=== PATIENT | female | born 1935 | race Caucasian/White ===

== ENCOUNTER → 2016-10-20 | Outpatient (CLI) | payer OTHER, MEDICARE ==
[~2016-10-20] MED LIST: ASPCH81X PO; ASPI81TA28 PO; CPR500 PO; FERR1TAB13 PO; GLC/500 PO; HYDR-3419 PO; IBUP-1050 PO; LEVO100T7 PO; LISI-461 PO; METF1TAB53 PO; METH2.5T PO; SYN100 PO
[2016-10-20 13:05] LABS: CALCIUM 8.5 mg/dl (8.5-10.1)
[2016-10-20 13:06] LABS: HEMATOCRIT 30.9 % (37-47); MEAN CELL VOLUME 78.2 fL (80-100); MEAN CORPUSCULAR HEMOGLOBIN 22.5 pg (25-34); MEAN CORPUSCULAR HGB CONC 28.8 g/dl (32-36); MEAN PLATELET VOLUME 9.7 fL (7.4-10.4); PLATELET COUNT 337 K/uL (130-400); RED BLOOD COUNT 3.95 M/uL (4.2-5.4); WHITE BLOOD COUNT 9.44 K/uL (4.8-10.8)
[2016-10-20 13:08] LABS: ALT/SGPT 26 U/L (12-78); BLOOD UREA NITROGEN 10 mg/dl (7-18); BUN/CREATININE RATIO 15.1 (10-20); CARBON DIOXIDE 28 mmol/L (21-32); CHLORIDE 106 mmol/L (98-107); CHOLESTEROL 163 mg/dl (0-200); CHOLESTEROL/HDL RATIO 3.7; CREATININE 0.67 mg/dl (0.60-1.20); GLUCOSE 144 mg/dl (70-99); HDL CHOLESTEROL 44 mg/dl; POTASSIUM 3.8 mmol/L (3.5-5.1); SODIUM 142 mmol/L (136-145); TRIGLYCERIDES 79 mg/dl (0-150); VERY LOW DENSITY LIPOPROT CALC 16 mg/dl
[2016-10-20 13:09] LABS: ANISOCYTOSIS PRESENT; BASO % 0.4 %; BASO ABS # 0.04 K/uL (0-0.2); COMPLETE YES; EOS % 2.5 %; IG% 0.5 %; LYMPH % 15.1 %; LYMPH ABS # 1.43 K/uL (1.2-3.4); MICROCYTOSIS PRESENT; NEUT % 72.5 %
[2016-10-20 13:13] LABS: ALB/GLOB RATIO 0.9 (0.9-2); ALKALINE PHOSPHATASE 89 U/L (45-117); AST/SGOT 24 U/L (15-37)
[2016-10-20 13:15] LABS: ESTIMATED AVERAGE GLUCOSE 163 mg/dl; HA1C FLAG Normal (Normal)
[2016-10-20 13:33] LABS: RATIO 53.8 mcg/mg (0-30.0)
== END | disposition home or self-care (01) ==
LOC: C.LABSPEC 12:11
PROVIDERS: ATTEND Internal Medicine
DX: E11.65 Type 2 diabetes mellitus with hyperglycemia (principal); E78.5 Hyperlipidemia, unspecified; I10 Essential (primary) hypertension; G70.00 Myasthenia gravis without (acute) exacerbation; E03.9 Hypothyroidism, unspecified

== ENCOUNTER → 2016-10-27 | Outpatient (CLI) | payer OTHER, MEDICARE ==
[~2016-10-27] MED LIST changes: +ATROPINE SULFATE 0.1 MG/ML 5ML SYR ONE
--- NOTE | 2016-10-27 17:11 | DOBUTAMINE ECHO ---
*NOTICE TO RECEIVING [employer] [employer] [facility] This information is strictly Confidential and protected under [place] law. [place] law prohibits you from making any further disclosure of this information unless further disclosure is expressly permitted by the written consent of the person to whom it pertains or is authorized by law. A general authorization for the release of medical or other information is not sufficient for this purpose. Hospital accepts no responsibility if the information is made available to any other person, INCLUDING THE PATIENT. Interpretation Summary * Name: RAMIN ORTIZ Study Date: 10/27/2016 11:55 AM BP: 152/82 mmHg * Patient Location: [facility] HR: 68 * : 1935 (M/d/yyyy) Gender: Female Height: 66 in * Age: 81 yrs Ethnicity: CA Weight: 219 lb * Ordering Physician: Tristan Horvath MD * Performed By: Radha Reich RDCS * * Reason For Study: Exertional dyspnea, abnormal EKG * BSA: 2.1 m2 * -- Conclusions -- * Negative dobutamine stress echocardiogram for myocardial ischemia at >100% maximum predicted heart rate. * No chest pain. * No ECG changes. * Baseline echocardiogram notes normal left ventricular systolic function and mild left ventricular hypertrophy. Procedure Details * DOBUTAMINE ECHO, CPT#[id number] * ECHO DOPPLER, CPT #[id number] * ECHO COLOR FLOW, CPT #[id number] * A contrast injection of Definity was performed to improve assessment of LV function. * Contrast was injected into an intravenous site in the left arm. * One vial of Definity ultrasound contrast was diluted in normal saline to a total volume of 10 ml. A total of '6' ml of solution was administered during imaging. * Lot # [id number] of Definity utilized for procedure. * Expiration date DEC 14. * The attending nurse who injected the contrast agent was Toshia Espino RN. Left Ventricle * The left ventricle is normal in size. * There is mild concentric left ventricular hypertrophy. * Ejection Fraction = 55-60%. * Left ventricular systolic function is normal. * Resting wall motion: Normal. Stress wall motion: Appropriate increase in Left ventricular systolic function and decrease in cavity size. No stress induced segmental wall motion abnormalities. Right Ventricle * The right ventricle is not well visualized. * The right ventricular systolic function is normal as assessed by tricuspid annular plane systolic excursion (TAPSE) (normal >1.5 cm). Atria * The left atrial size is normal. * Right atrium not well visualized. * There is no evidence of atrial septal defect, but resolution does not allow assessment for a patent foramen ovale. Mitral Valve * The mitral valve is grossly normal. * There is no mitral valve stenosis. * Significant mitral regurgitation is absent. Tricuspid Valve * The tricuspid valve is not well visualized. * There is no tricuspid stenosis. * Significant tricuspid regurgitation is absent. Aortic Valve * The aortic valve is trileaflet. * The aortic valve opens well. * Aortic valve sclerosis mild, without significant aortic valvular stenosis. * No hemodynamically significant valvular aortic stenosis. * There is no significant aortic regurgitation. Pulmonic Valve * The pulmonary valve is not well seen, but the Doppler examination is normal without significant regurgitation or stenosis. Great Vessels * The aortic root is normal size. * The pulmonary is not well visualized. Pericardium * There is no pericardial effusion. Stress Parameters * Normal baseline electrocardiogram. * Stress ECG: No ST changes. No arrhythmias. * The stress portion of this study was personally supervised by the undersigned interpreting physician. * Rest heart rate was '68' BPM. * Rest blood pressure was '152/82' * Maximum heart rate achieved was 151 bpm. * Maximum heart rate was 107 % of maximum age-predicted heart rate. * Maximum blood pressure was '164/81' * Maximum Dobutamine infusion rate was '10' mcg/kg/min. * A total of 0.25 mg of intravenous Atropine was used to supplement Dobutamine for heart rate response. * Dobutamine infusion was terminated due to achieving target heart rate * A total of 5 mg of IV Metoprolol was administered to reverse Dobutamine-induced tachycardia. * The patient did not exhibit any symptoms during drug infusion. Left Ventricular Diastolic Function * Grade I diastolic dysfunction, (abnormal relaxation pattern). MMode 2D Measurements and Calculations IVSd 1.2 cm LVIDd 3.8 cm LVIDs 2.6 cm LVPWd 1.3 cm IVS/LVPW 0.90 FS 30.4 % EDV(Teich) 62.3 ml ESV(Teich) 25.8 ml EF(Teich) 58.6 % EDV(cubed) 55.2 ml ESV(cubed) 18.6 ml EF(cubed) 66.3 % LV mass(C)d 167.1 grams LV mass(C)dI 80.4 grams/m\S\2 SV(Teich) 36.5 ml SI(Teich) 17.6 ml/m\S\2 SV(cubed) 36.6 ml SI(cubed) 17.6 ml/m\S\2 Ao root diam 3.5 cm Ao root area 9.4 cm\S\2 ACS 2.1 cm LA dimension 2.2 cm asc Aorta Diam 3.9 cm LA/Ao 0.65 LVOT diam 2.0 cm LVOT area 3.2 cm\S\2 LVAd ap4 31.6 cm\S\2 LVLd ap4 8.2 cm EDV(MOD-sp4) 99.7 ml EDV(sp4-el) 103.3 ml LVAs ap4 19.2 cm\S\2 LVLs ap4 7.2 cm ESV(MOD-sp4) 42.0 ml ESV(sp4-el) 43.7 ml EF(MOD-sp4) 57.8 % EF(sp4-el) 57.7 % LVAd ap2 26.1 cm\S\2 LVLd ap2 8.0 cm EDV(MOD-sp2) 69.0 ml EDV(sp2-el) 71.8 ml LVAs ap2 14.4 cm\S\2 LVLs ap2 6.3 cm ESV(MOD-sp2) 27.5 ml ESV(sp2-el) 27.7 ml EF(MOD-sp2) 60.1 % EF(sp2-el) 61.5 % LVLd %diff -2.12 % EDV(MOD-bp) 84.0 ml LVLs %diff -12.70 % ESV(MOD-bp) 36.0 ml EF(MOD-bp) 57.1 % SV(MOD-sp4) 57.6 ml SI(MOD-sp4) 27.7 ml/m\S\2 SV(MOD-sp2) 41.5 ml SI(MOD-sp2) 19.9 ml/m\S\2 SV(MOD-bp) 48.0 ml SI(MOD-bp) 23.1 ml/m\S\2 SV(sp4-el) 59.6 ml SI(sp4-el) 28.7 ml/m\S\2 SV(sp2-el) 44.1 ml SI(sp2-el) 21.2 ml/m\S\2 Doppler Measurements and Calculations MV E max mehnaz 99.7 cm/sec MV A max mehnaz 114.0 cm/sec MV E/A 0.87 MV dec time 0.26 sec Ao V2 max 147.2 cm/sec Ao max PG 8.7 mmHg Ao max PG (full) 4.7 mmHg CHARLES(V,A) 2.2 cm\S\2 CHARLES(V,D) 2.2 cm\S\2 LV V1 max PG 4.0 mmHg LV V1 max 99.7 cm/sec PA V2 max 93.7 cm/sec PA max PG 3.5 mmHg PA acc slope 598.1 cm/sec\S\2 PA acc time 0.11 sec TR max mehnaz 149.7 cm/sec PA pr(Accel) 31.5 mmHg
== END | disposition home or self-care (01) ==
LOC: C.CPL 11:00
PROVIDERS: ATTEND Internal Medicine
DX: R06.09 Other forms of dyspnea (principal); R94.31 Abnormal electrocardiogram [ECG] [EKG]

== ENCOUNTER → 2016-11-08 | Outpatient (CLI) | payer OTHER, MEDICARE ==
[~2016-11-08] MED LIST changes: -ATROPINE SULFATE 0.1 MG/ML 5ML SYR ONE
== END | disposition home or self-care (01) ==
LOC: C.LABSPEC 17:47
PROVIDERS: ATTEND Internal Medicine
DX: Z12.11 Encounter for screening for malignant neoplasm of colon (principal)

== ENCOUNTER → 2016-11-22 | Day surgery (SDC) | payer OTHER, MEDICARE ==
[2016-11-12 09:18] VITALS: Ht 168.9 cm; Wt 99.5 kg
[~2016-11-22] VITALS: Ht 168.9 cm; Wt 99.5 kg
[~2016-11-22] MED LIST changes: -ASPI81TA28 PO; +ATROPINE SULFATE 0.1 MG/ML 5ML SYR IV PRN; -CPR500 PO; +EpHEDrine SULFATE INJ 50 MG/ML AMP IV PRN; -GLC/500 PO; -HYDR-3419 PO; +LIDOCAINE HCL 2% 2 ML VIAL (20MG/ML) ONE; +PROPOFOL IV EMULSION 10 MG/ML 20 ML VIAL IV ONE; -SYN100 PO
--- NOTE | 2016-11-22 14:06 | Endo History and Physical ---
History & Physical Date of Service: Nov 22, 2016. Chief Complaint: ANEMIA Referring Physician: DR. CARMEN MEIER History of Present Illness For colonoscopy Past Surgical History Hx Cardiac Surgery: Yes (HEART ANEURYSM REPAIR ([facility])) Hx Internal Defibrillator: No Hx Pacemaker: No Hx Abdominal Surgery: Yes (INCISIONAL HERNIA, [facility]MANUEL) Hx of Implantable Prosthesis: No Hx Post-Op Nausea and Vomiting: No Hx Cancer Surgery: No Hx Thoracic Surgery: No Hx Orthopedic: Yes (RT/LEFT KNEE ARTHROSCOPY, LEFT RCR, RT/LEFT CTR) Hx Urinary Tract Surgery: Yes (KIDNEY ANUERYSM REPAIR ([place])) Family History None Social History Smoking Status: Former Smoker Hx Substance Use: No Hx Alcohol Use: No Allergies Coded Allergies: No Known Allergies (Unverified , NONE, 11/22/16) Current Medications Reported Home Medications Medications Dose Route/Sig Max Daily Dose Days Date Category Aspirin Chewable (Aspirin) 81 Mg Chew 81 Mg PO QAM 11/12/16 Reported Methotrexate 2.5 Mg Tab 4 Tab PO WK 11/12/16 Reported Glucophage Ext Rel (Metformin Hcl) 1,000 Mg Tab 1,000 Mg PO BID 11/12/16 Reported Zestril (Lisinopril) 10 Mg Tab 10 Mg PO QAM 11/12/16 Reported Levothyroxine Sodium 100 Mcg Tab 1 Tab PO QAM 90 11/12/16 Reported Vital Signs Weight (Kilograms): 99.55 Height (Feet): 5 Height (Inches): 6.5 Date Time Temp Pulse Resp B/P (MAP) Pulse Ox O2 Delivery O2 Flow Rate FiO2 11/22/16 13:52 36.8 81 20 173/75 (107) 96 Room Air Physical Exam General Appearance: + obese Respiratory/Chest: Respiratory effort: no dyspnea Cardiovascular: Heart Auscultation: RRR Abdomen: Inspection & Palpation: soft Assessment and Plan Anemia for colonoscopy
--- NOTE | 2016-11-22 14:39 | Discharge Instructions ---
Endoscopy Patient Instructions Date / Procedure(s) Performed Nov 22, 2016. Colonoscopy Allergy Information Coded Allergies: No Known Allergies (Unverified , NONE, 11/22/16) Discharge Date / Findings Nov 22, 2016. Diverticulosis Medication Instructions Stopped Medication(s): INSTRUCTED TO STOP METFORMIN 3 DAYS AGO. Restart Stopped Medication(s): resume meds Reported Home Medications Medications Dose Route/Sig Max Daily Dose Days Date Category Aspirin Chewable (Aspirin) 81 Mg Chew 81 Mg PO QAM 11/12/16 Reported Methotrexate 2.5 Mg Tab 4 Tab PO WK 11/12/16 Reported Glucophage Ext Rel (Metformin Hcl) 1,000 Mg Tab 1,000 Mg PO BID 11/12/16 Reported Zestril (Lisinopril) 10 Mg Tab 10 Mg PO QAM 11/12/16 Reported Levothyroxine Sodium 100 Mcg Tab 1 Tab PO QAM 90 11/12/16 Reported Provider Instructions Activity Restrictions - No exercising or heavy lifting for 24 hours. - Do not drink alcohol the day of the procedure. - Do not drive a car or operate machinery until the day after the procedure. - Do not make any important decisions or sign important papers in 24 hours after the procedure. Following Day: - Return to full activity which may include returning to work/school. Diet Start your diet with liquids and light foods (jello, soup, juice, toast). Then eat your usual diet if not nauseated. Treatment For Common After Affects For mild abdominal pain, bloating, or excessive gas: - Rest - Eat lightly - Lie on right side Follow-Up Information Follow-up with DR. CARMEN MEIER as scheduled Anesthesia Information What You Should Know You have had a procedure that required some medicine to reduce anxiety and discomfort. This treatment is called moderate sedation. After receiving the treatment, you may be sleepy, but you will be able to breathe on your own. The effects of the treatment may last for several hours. Follow these instructions along with Activity/Diet recommendations noted above: * Do NOT do anything where dizziness or clumsiness would be dangerous. * Rest quietly at home today, then you can be up and about tomorrow. * Have a responsible person stay with you the rest of today. * You may have had an I.V. today. If so, you may take the dressing off later today. Recommendations Call your doctor if: * Trouble breathing * Continuous vomiting for more than 24 hours * Temperature above 101 degrees * Severe abdominal pain or bloating * Pain not relieved by pain medicine ordered * There is increased drainage or redness from any incision * A large amount of rectal bleeding greater than 2-3 tablespoons. (If you had a polyp/s removed or have hemorrhoids, a small amount of blood - from the rectum is to be expected.) * You have any unanswered questions or concerns. IN THE EVENT OF A SERIOUS EMERGENCY, GO TO THE NEAREST EMERGENCY ROOM Your discharge instructions were prepared by provider Arnav Parker. Patient Instructions Signature Page Urmila Garrett Patient (or Guardian) Signature/Date: I have read and understand the instructions given to me by my caregivers. Caregiver/RN/Doctor Signature/Date: The above-named patient and/or guardian has received patient instructions on this date. + Original Patient Signature Page (only) stays with chart. Please make copy for patient.
--- NOTE | 2016-11-22 14:41 | GI REPORT ---
Procedure Date: 11/22/2016 2:23 PM Procedure: Colonoscopy Indications: Unexplained iron deficiency anemia Medicines: Propofol total dose 150 mg IV, Lidocaine 40 mg IV Complications: No immediate complications. Estimated Blood Loss: Estimated blood loss: none. Procedure: Pre-Anesthesia Assessment: - Prior to the procedure, a History and Physical was performed, and patient medications, allergies and sensitivities were reviewed. The patient's tolerance of previous anesthesia was reviewed. - The risks and benefits of the procedure and the sedation options and risks were discussed with the patient. All questions were answered and informed consent was obtained. After I obtained informed consent, the scope was passed under direct vision. Throughout the procedure, the patient's blood pressure, pulse, and oxygen saturations were monitored continuously. The scope was introduced through the anus and advanced to the cecum, identified by appendiceal orifice and ileocecal valve. The colonoscopy was performed without difficulty. The patient tolerated the procedure well. The quality of the bowel preparation was good. Findings: A few diverticula were found in the sigmoid colon. Impression: - Diverticulosis in the sigmoid colon. - No specimens collected. Recommendation: - Discharge patient to home (ambulatory). - Continue present medications. - Return to primary care physician PRN. Arnav Parker M.D. Arnav Parker MD 11/22/2016 2:41:03 PM This report has been signed electronically. Note Initiated On: 11/22/2016 2:23 PM I attest to the content of the Intraoperative Record and orders documented therein, exceptions below
--- NOTE | 2016-11-22 14:51 | Anesthesiology Progress Note ---
Anesthesia Post Op Note Date & Time Nov 22, 2016 at 14:51 Vital Signs Pain Intensity: 0 Vital Signs Past 12 Hours Date Time Temp Pulse Resp B/P (MAP) Pulse Ox O2 Delivery O2 Flow Rate FiO2 11/22/16 14:40 78 20 150/76 (100) 97 Room Air 11/22/16 13:52 36.8 81 20 173/75 (107) 96 Room Air Notes Mental Status: alert / awake / arousable, participated in evaluation Pt Amnestic to Procedure: Yes Nausea / Vomiting: adequately controlled Pain: adequately controlled Airway Patency, RR, SpO2: stable & adequate BP & HR: stable & adequate Hydration State: stable & adequate Anesthetic Complications: no major complications apparent
[2016-11-22 15:10] VITALS: BP 172/88; PULSE 77; O2SAT 96
== END | disposition home or self-care (01) ==
LOC: C.GI 13:31
PROVIDERS: ATTEND Internal Medicine Gastroenterology
DX: D64.9 Anemia, unspecified (principal); K57.30 Diverticulosis of large intestine without perforation or abscess without bleeding; Z87.891 Personal history of nicotine dependence

== ENCOUNTER → 2016-12-01 | Outpatient (CLI) | payer OTHER, MEDICARE ==
[~2016-12-01] MED LIST changes: -ATROPINE SULFATE 0.1 MG/ML 5ML SYR IV PRN; -EpHEDrine SULFATE INJ 50 MG/ML AMP IV PRN; -FERR1TAB13 PO; -IBUP-1050 PO; -LIDOCAINE HCL 2% 2 ML VIAL (20MG/ML) ONE; -PROPOFOL IV EMULSION 10 MG/ML 20 ML VIAL IV ONE
[2016-12-01 16:43] LABS: HEMATOCRIT 31.7 % (37-47); MEAN CELL VOLUME 78.1 fL (80-100); MEAN CORPUSCULAR HEMOGLOBIN 22.4 pg (25-34); MEAN CORPUSCULAR HGB CONC 28.7 g/dl (32-36); MEAN PLATELET VOLUME 10.1 fL (7.4-10.4); PLATELET COUNT 330 K/uL (130-400); RED BLOOD COUNT 4.06 M/uL (4.2-5.4); WHITE BLOOD COUNT 7.67 K/uL (4.8-10.8)
== END | disposition home or self-care (01) ==
LOC: C.LABSPEC 11:40
PROVIDERS: ATTEND Internal Medicine
DX: K62.5 Hemorrhage of anus and rectum (principal)

== ENCOUNTER → 2017-03-16 | Outpatient (CLI) | payer OTHER, MEDICARE ==
[~2017-03-16] MED LIST changes: +FERR1TAB13 PO; +IBUP-1050 PO
[2017-03-16 12:59] LABS: BASO % 1.3 %; BASO ABS # 0.12 K/uL (0-0.2); COMPLETE YES; EOS % 2.8 %; HEMATOCRIT 44.8 % (37-47); IG% 0.4 %; LYMPH % 18.1 %; LYMPH ABS # 1.67 K/uL (1.2-3.4); MEAN CELL VOLUME 89.4 fL (80-100); MEAN CORPUSCULAR HEMOGLOBIN 27.9 pg (25-34); MEAN CORPUSCULAR HGB CONC 31.3 g/dl (32-36); MEAN PLATELET VOLUME 10.5 fL (7.4-10.4); MONO % 9.6 %; NEUT % 67.8 %; PLATELET COUNT 273 K/uL (130-400); RED BLOOD COUNT 5.01 M/uL (4.2-5.4); WHITE BLOOD COUNT 9.23 K/uL (4.8-10.8)
[2017-03-16 13:11] LABS: ALT/SGPT 34 U/L (12-78); AST/SGOT 28 U/L (15-37); BLOOD UREA NITROGEN 13 mg/dl (7-18); CALCIUM 9.2 mg/dl (8.5-10.1); CARBON DIOXIDE 30 mmol/L (21-32); CHLORIDE 103 mmol/L (98-107); CHOLESTEROL 222 mg/dl (0-200); CREATININE 0.62 mg/dl (0.60-1.20); GLUCOSE 135 mg/dl (70-99); SODIUM 139 mmol/L (136-145); TRIGLYCERIDES 172 mg/dl (0-150); VERY LOW DENSITY LIPOPROT CALC 34 mg/dl
[2017-03-16 13:20] LABS: ALKALINE PHOSPHATASE 86 U/L (45-117); CHOLESTEROL/HDL RATIO 4.6; HDL CHOLESTEROL 48 mg/dl
[2017-03-16 13:30] LABS: ESTIMATED AVERAGE GLUCOSE 154 mg/dl; HA1C FLAG Normal (Normal)
[2017-03-16 13:55] LABS: CREATININE RANDOM URINE 22.2 mg/dl
[2017-03-16 14:06] LABS: RATIO 49.1 mcg/mg (0-30.0)
== END | disposition home or self-care (01) ==
LOC: C.LABSPEC 12:17
PROVIDERS: ATTEND Internal Medicine
DX: I10 Essential (primary) hypertension (principal); E11.65 Type 2 diabetes mellitus with hyperglycemia; E78.5 Hyperlipidemia, unspecified; G70.9 Myoneural disorder, unspecified

== ENCOUNTER → 2017-04-19 | Day surgery (SDC) | payer OTHER, MEDICARE ==
[2017-04-11 15:15] VITALS: Ht 168.9 cm; Wt 99.5 kg
[~2017-04-19] VITALS: Ht 168.9 cm; Wt 99.5 kg
[~2017-04-19] MED LIST changes: +500ML BSS 0.3ML EPI 1:1000PF IRRIG ONE; +ACETAMINOPHEN 325 MG TAB PO PRN; +AMVISC PLUS 0.8ML SYRINGE INT OCU ONE; +ATROPINE SULFATE 0.1 MG/ML 5ML SYR IV PRN; +BSS FLUSH ONE; +EpHEDrine SULFATE INJ 50 MG/ML AMP IV PRN; +EpINEphrine INJ 1MG/ML AMP 1 MG/ML AMP ONE; +LACTATED RINGER'S 1000ML 500 ML IV SCH; +LIDOCAINE 3.5% OPH GEL PER APPLICATION CHARGE ONE; +LIDOCAINE HCL 1% MPF 2 ML VIAL ONE; +MIDAZOLAM HCL 1 MG/ML 2ML VIAL ONE; +OCUCOAT 1 ML SOLN IO ONE; +POVIDONE-IODINE OP SOLN 30 ML BTL ONE; +PROPARACAINE 0.5% OP SOLN PER DROP CHARGE OPR SCH; +TOBRAMYCIN/DEXAMETHASONE OPH OINT PER APPLN CHARGE ONE
[2017-04-19] MEDS: PHENYLEPHRINE HCL 2.5% OP SOLN PER DROP CHARGE OPR SCH ×2 (06:44→06:51)
[2017-04-19] MEDS: TROPICAMIDE 1% OP SOLN PER DROP CHARGE OPR SCH ×2 (06:45→06:53)
[2017-04-19] MEDS: CYCLOPENTOLATE HCL 1% OP SOLN PER DROP CHARGE OPR SCH ×2 (06:46→06:54)
[2017-04-19] MEDS: KETOROLAC 0.5% OP SOLN PER DROP CHARGE OPR SCH ×2 (06:47→06:55)
[2017-04-19] MEDS: GATIFLOXACIN OP SOLN PER DROP CHARGE OPR SCH ×2 (06:48→06:57)
--- NOTE | 2017-04-19 06:55 | History & Physical Bridge - SC ---
H&P Re-Evaluation Bridge Note: I have examined the patient, reviewed the History & Physical and in the interval since the performance of the History & Physical I have noted the following changes of clinical significance: No changes noted
[2017-04-19 07:24] VITALS: TEMP 36.2
--- NOTE | 2017-04-19 07:24 | [facility] Operative Report ---
Operative Report Date of Service Apr 19, 2017. Operative Report 1. PREOPERATIVE DIAGNOSIS: Cataract of the right eye. 2. POSTOPERATIVE DIAGNOSIS: Same. 3. PROCEDURE: Phacoemulsification with intraocular lens implantation of the right eye. SURGEON: Dr. Owen Gonzalez. ANESTHESIA: Topical Lidocaine gel, 1% Non- Preserved intracameral Lidocaine, and monitored intravenous sedation. INDICATIONS FOR THE PROCEDURE: The patient is a 81 - year-old female with a history of cataract of the right eye causing significant visual impairment. The details of the proposed procedure were explained to the patient who asked appropriate questions and following discussion of all risks, benefits and alternatives agreed to have the procedure done. 4. OPERATION AND FINDINGS: DESCRIPTION OF PROCEDURE: After informed consent was obtained, the patient was brought to the Operating Room at the [facility]. The patient was placed in a supine position and then the right eye was prepped and draped in the usual sterile fashion for intraocular surgery. A drop of topical Lidocaine gel was placed in the operative eye. A wire lid speculum was then placed in the fornices. A corneal paracentesis was then created temporally. The Non-Preserved Lidocaine was then instilled into the anterior chamber. The anterior chamber was then pressurized with viscoelastic. A 2.0 mm clear corneal incision was then created temporally. A cystotome was inserted into the anterior chamber and used to create a tear in the anterior lens capsule. This capsular tear was then used to create a small flap and the flap was dragged in a counterclockwise direction in order to create a continuous curvilinear capsulorrhexis. Hydrodissection was accomplished with balanced salt solution. Phacoemulsification of the lens nucleus was then performed in a standard [id number] technique. The phaco time was 30 seconds with an average power of 12 %. The remaining cortical material was removed using irrigation aspiration. The capsular bag was then filled with viscoelastic. A [employer]ch [employer] Lomb MI60L +22.0 diopters lens was then loaded into the injector and injected into the capsular bag. The remaining viscoelastic was removed with the irrigation aspiration handpiece. The wound was hydrated and then checked and found to be watertight. The intraocular pressure was checked and found to be adequate. The wire lid speculum was removed and the patient's face was cleaned and dried. TobraDex ointment was placed in the inferior fornix. The patient was discharged to the Recovery Room having tolerated the procedure well. There were no complications. The patient will be seen tomorrow in the office for follow-up. I attest to the content of the Intraoperative Record and any orders documented therein. Any exceptions are noted below.
--- NOTE | 2017-04-19 07:24 | Discharge Instructions-SurgCtr ---
Discharge Instructions Date of Service Apr 19, 2017. Visit Reason for Visit: Cataract Right Eye Discharge Discharge Diagnosis / Problem: cataract Discharge Goals Goal(s): Improve function Activity Recommendations Activity Limitations: per Instructions/Follow-up section Anesthesia . Post Anesthesia Instructions: If you have had General Anesthesia or IV Sedation: * Do not drive today. * Resume driving when surgeon permits. * Do not make important decisions or sign legal documents today. * Call surgeon for: 1. Temperature elevations greater than 101 degrees F. 2. Uncontrollable pain. 3. Excessive bleeding. 4. Persistent nausea and vomiting. 5. Medication intolerance (nausea, vomiting or rash). * For nausea and vomiting use only clear liquids such as: tea, soda, bouillon until nausea subsides, then gradually increase diet as tolerated. * If you have any concerns or questions, call your surgeon's office. If physician is unavailable and it is an emergency, call 911 or go to the nearest emergency room. . Diet Recommendations Home Diet: resume previous diet Procedures Procedures Performed: Right Cataract Phacoemulsification With Intraocular Lens Implant Pending Studies Studies pending at discharge: no Medical Emergencies . Who to Call and When: Medical Emergencies: If at any time you feel your situation is an emergency, please call 911 immediately. . Non-Emergent Contact Non-Emergency issues call your: Contracts Paralegal . . "Provider Documentation" section prepared by Owen Gonzalez. .
[2017-04-19 07:52] VITALS: BP 143/80; PULSE 61; O2SAT 97
--- NOTE | 2017-04-19 07:52 | Anesthesia Progress Nt - [facility] ---
Anesthesia Post Op Note Date & Time Apr 19, 2017 at 07:52 Vital Signs Pain Intensity: 0 Vital Signs Past 12 Hours Date Time Temp Pulse Resp B/P (MAP) Pulse Ox O2 Delivery O2 Flow Rate FiO2 04/19/17 07:24 36.2 68 16 140/81 (100) 95 Room Air 04/19/17 07:01 36.7 68 20 149/83 (105) 99 Room Air Notes Mental Status: alert / awake / arousable, participated in evaluation Pt Amnestic to Procedure: Yes Nausea / Vomiting: adequately controlled Pain: adequately controlled Airway Patency, RR, SpO2: stable & adequate BP & HR: stable & adequate Hydration State: stable & adequate Anesthetic Complications: no major complications apparent
== END | disposition home or self-care (01) ==
LOC: X.SURG 06:17
PROVIDERS: ATTEND Ophthalmology
DX: E11.36 Type 2 diabetes mellitus with diabetic cataract (principal); H26.9 Unspecified cataract; I10 Essential (primary) hypertension; G70.00 Myasthenia gravis without (acute) exacerbation; F41.9 Anxiety disorder, unspecified; E03.9 Hypothyroidism, unspecified; E66.9 Obesity, unspecified; M19.90 Unspecified osteoarthritis, unspecified site

== ENCOUNTER → 2017-09-19 | Outpatient (CLI) | payer OTHER, MEDICARE ==
[~2017-09-19] MED LIST changes: -500ML BSS 0.3ML EPI 1:1000PF IRRIG ONE; -ACETAMINOPHEN 325 MG TAB PO PRN; -AMVISC PLUS 0.8ML SYRINGE INT OCU ONE; -ATROPINE SULFATE 0.1 MG/ML 5ML SYR IV PRN; -BSS FLUSH ONE; -EpHEDrine SULFATE INJ 50 MG/ML AMP IV PRN; -EpINEphrine INJ 1MG/ML AMP 1 MG/ML AMP ONE; -LACTATED RINGER'S 1000ML 500 ML IV SCH; -LIDOCAINE 3.5% OPH GEL PER APPLICATION CHARGE ONE; -LIDOCAINE HCL 1% MPF 2 ML VIAL ONE; -MIDAZOLAM HCL 1 MG/ML 2ML VIAL ONE; -OCUCOAT 1 ML SOLN IO ONE; -POVIDONE-IODINE OP SOLN 30 ML BTL ONE; -PROPARACAINE 0.5% OP SOLN PER DROP CHARGE OPR SCH; -TOBRAMYCIN/DEXAMETHASONE OPH OINT PER APPLN CHARGE ONE
[2017-09-19 12:58] LABS: BASO % 0.6 %; BASO ABS # 0.04 K/uL (0-0.2); EOS % 3.4 %; EOS ABS # 0.21 K/uL (0-0.5); HEMATOCRIT 42.7 % (37-47); HEMOGLOBIN 13.8 g/dL (12.0-16.0); IG# 0.01 K/uL (0.00-0.02); LYMPH ABS # 1.38 K/uL (1.2-3.4); MEAN CELL VOLUME 92.6 fL (80-100); MEAN CORPUSCULAR HEMOGLOBIN 29.9 pg (25-34); MEAN CORPUSCULAR HGB CONC 32.3 g/dl (32-36); MEAN PLATELET VOLUME 11.5 fL (7.4-10.4); MONO % 9.6 %; NEUT % 64.2 %; NEUT ABS # 4.02 K/uL (1.4-6.5); PLATELET COUNT 249 K/uL (130-400); RED CELL DISTRIBUTION WIDTH CV 17.6 % (11.5-14.5); RED CELL DISTRIBUTION WIDTH SD 58.3 fL (36.4-46.3); WHITE BLOOD COUNT 6.26 K/uL (4.8-10.8)
[2017-09-19 13:36] LABS: ALBUMIN 3.4 gm/dl (3.4-5.0); ALT/SGPT 31 U/L (12-78); AST/SGOT 31 U/L (15-37); BLOOD UREA NITROGEN 9 mg/dl (7-18); CALCIUM 8.8 mg/dl (8.5-10.1); CARBON DIOXIDE 28 mmol/L (21-32); CREATININE 0.71 mg/dl (0.60-1.20); GLUCOSE 110 mg/dl (70-99); POTASSIUM 3.9 mmol/L (3.5-5.1); SODIUM 140 mmol/L (136-145)
[2017-09-19 13:43] LABS: ALKALINE PHOSPHATASE 72 U/L (45-117); CHOLESTEROL 172 mg/dl (0-200); LDL CHOLESTEROL (DIRECT) 117 mg/dl
[2017-09-19 13:58] LABS: HEMOGLOBIN A1C 6.9 % (4.5-5.6)
== END | disposition home or self-care (01) ==
LOC: C.LABSPEC 12:13
PROVIDERS: ATTEND Internal Medicine
DX: Z00.00 Encounter for general adult medical examination without abnormal findings (principal); E11.9 Type 2 diabetes mellitus without complications; I10 Essential (primary) hypertension; E03.9 Hypothyroidism, unspecified; E78.5 Hyperlipidemia, unspecified